=== PATIENT | male | born 1980 ===

== ENCOUNTER 2020-09-05 12:02 | Emergency (ER) | payer SELFPAY ==
[2020-09-05 12:32] VITALS: BP 124/87
[2020-09-05] MEDS ORDERED: TETANUS,DIPH,PERTUSS(ACELL) VACCINE 0.5 ML SYRINGE IM ONE (12:33)
[2020-09-05] MEDS ORDERED: NEOMY 3.5 MG/BACIT 400 UNITS/POLY B 5000 UNITS/GM OINT PACKET TP ONE (12:33)
[2020-09-05] MEDS ORDERED: LIDOCAINE (1%) 10 MG/1 ML VIAL 20 ML MDV INFILTRATI ONE (12:33)
[2020-09-05] MEDS ORDERED: ACETAMINOPHEN 325 MG TAB PO ONE (12:33)
[2020-09-05] MEDS ORDERED: SODIUM CHLORIDE 0.9% IRR 500 ML BOTTLE IR ONE (12:33)
--- NOTE | 2020-09-05 12:35 | Event Note ---
ED Screening Note ED Screening Note: lac to left 5th digit needs tdap wound wrapped in triage bleeding controlled This initial assessment/diagnostic orders/clinical plan/treatment(s) is/are subject to change based on patients health status, clinical progression and re- assessment by fellow clinical providers in the ED. Further treatment and workup at subsequent clinical providers discretion. Patient/guardian urged not to elope from the ED as their condition may be serious if not clinically assessed and managed. Initial orders include: xr ro fx lac repair
--- NOTE | 2020-09-05 14:09 | XRay Report ---
LEFT LITTLE FINGER 3 VIEWS INDICATION / CLINICAL INFORMATION: Laceration of left little finger. COMPARISON: None available. FINDINGS: BONES and JOINT(S): There is an acute comminuted fracture of the tip of the distal phalanx of the lit tle finger. No dislocation. 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 SOFT TISSUES: Moderate edema is seen throughout the little finger with soft tissue gas and a large so ft tissue defect along the tip of the little finger. No radiopaque foreign bodies are seen. ADDITIONAL FINDINGS: None. IMPRESSION: 1. Acute open fracture of the left little finger as above. 2. Additional findings as above. Signer Name: Andrae Pollard MD Signed: 09/05/2020 2:04 PM Workstation Name: [id number]
--- NOTE | 2020-09-05 14:41 | Emergency Department Report ---
Upper Extremity - HPI Chief Complaint: Extremity Injury, Upper Stated Complaint: LAC FINGER SMALL LT Time Seen by Provider: 09/05/20 12:33 Upper Extremity: Left Little Finger (Laceration ) Occurred When: Today Mechanism: Other (Pt states he was helping pull a "band" off a machine and in process his left fifth finger got caught in band and cut his finger) Severity: moderate Symptoms: Yes Pain with Movement, Yes Deformity, Yes Limited Range of Movement, Yes Bruising/Ecchymosis, Yes Laceration or Abrasion Other History: Patient states he is up-to-date on his tetanus. he is right-hand dominant. ED Review of Systems ROS: Stated complaint: LAC FINGER SMALL LT Other details as noted in HPI Comment: All other systems reviewed and negative Constitutional: denies: chills, fever, weakness Eyes: denies: eye pain, eye discharge, vision change ENT: denies: ear pain, throat pain, dental pain, hearing loss, epistaxis, congestion Respiratory: denies: cough, shortness of breath, SOB with exertion, SOB at rest, wheezing Cardiovascular: denies: chest pain, palpitations, dyspnea on exertion, edema, syncope, paroxysmal nocturnal dyspnea Genitourinary: denies: urgency, dysuria Musculoskeletal: joint swelling, arthralgia Skin: other (laceration to finger left ) Neurological: denies: weakness, numbness, paresthesias, abnormal gait, vertigo ED Past Medical Hx - Past Medical History Previous Medical History?: No - Surgical History Additional Surgical History: hernia repair - Social History Smoking Status: Current Every Day Smoker Substance Use Type: Alcohol - Medications Home Medications: Home Medications Medication Instructions Recorded Confirmed Last Taken Type HYDROcodone/APAP 5-325 [[place] 1 each PO Q4HR PRN #12 tablet 09/05/20 Unknown Rx 5/325] Ibuprofen [Motrin] 600 mg PO Q8H PRN #30 tablet 09/05/20 Unknown Rx cephALEXin [Keflex] 500 mg PO Q8HR #21 cap 09/05/20 Unknown Rx Upper Extremity Exam - Exam General: Vital signs noted. No distress. Alert and acting appropriately. Head and Torso: No Chest/Lungs Abnormality Shoulder Exam: Yes Normal Range of Motion in Shoulder Elbow: Yes Normal Range of Motion in Elbow Forearm: No Forearm Tenderness, No Forearm Deformity, No Pain with Pronation, No Pain with Supination Wrist: Yes Normal ROM in Wrist, No Wrist Tenderness, No Wrist Deformity, No Snuffbox Tenderness, No Pain with Axial Thumb Compression Hand: Yes Digit Tenderness (partial amputation distal aspect of left 5th finger with associated partial nail avulsion with mod ttp), Yes Normal ROM in Digit(s) (flex and ext at level of DIP joint reduced and Pt has chronic deformity at level of PIP joint of left 5th finger therfore already reducing ROM finger), Yes Digit(s) Deformity (Partial amputation of the distal aspect of the left fifth finger he also has a chronic deformity at the level of the PIP joint of the left fifth finger), Yes Tendon Dysfunction (Distal aspect of the left fifth finger), No Hand Tenderness, No Hand Deformity CMS Exam: Yes Broken Skin (Partial amputation at the distal aspect of the left fifth finger with associated partial nail avulsion ), Yes Normal Capillary Refill, Yes Normal Distal Sensation ED Course Vital Signs 09/05/20 09/05/20 12:31 13:07 Temperature 98.1 F Pulse Rate 65 Respiratory 18 16 Rate Blood Pressure 124/87 O2 Sat by Pulse 98 Oximetry - Laceration /Wound Repair Left Distal Finger Wound Location: upper extremity (distal left 5th finger ) Wound Explored: clean Irrigated w/ Saline (ccs): 750 Betadine Prep?: No (Use surgical scrub) Anesthesia: 1% Lidocaine Volume Anesthetic (ccs): 7 (Did digital block ) Wound Debrided: None Wound Repaired With: sutures Suture Size/Type: 4:0, nylon Number of Sutures: 8 Sterile Dressing Applied?: Yes (also finger splint ) Progress: Patient was tolerated procedure well. No complications. - Nerve Block Consent Obtained: verbal consent Time Out Performed: No Local Anesthetic Used: Lidocaine 1% Amount of anesthesia used: 7 Side: left Nerve Blocks: digital Procedure Successful: Yes Complications: none Patient Tolerated Procedure: well, no complications ED Medical Decision Making - Radiology Data Radiology results: report reviewed Ordering Physician: ALLIE LYNCH Date of Service: 09/05/20 Procedure(s): XR finger(s) 2+V LT Accession Number(s): [id number] cc: ALLIE LYNCH Fluoro Time In Minutes: LEFT LITTLE FINGER 3 VIEWS INDICATION / CLINICAL INFORMATION: Laceration of left little finger. COMPARISON: None available. FINDINGS: BONES and JOINT(S): There is an acute comminuted fracture of the tip of the distal phalanx of the little finger. No dislocation. 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 SOFT TISSUES: Moderate edema is seen throughout the little finger with soft tissue gas and a large soft tissue defect along the tip of the little finger. No radiopaque foreign bodies are seen. ADDITIONAL FINDINGS: None. IMPRESSION: 1. Acute open fracture of the left little finger as above. 2. Additional findings as above. Signer Name: Andrae Pollard MD Signed: 09/05/2020 2:04 PM Workstation Name: [id number] Transcribed By: RHONDA Dictated By: Andrae Pollard MD Electronically Authenticated By: Andrae Pollard MD Signed Date/Time: 09/05/201403 DD/ 01 TD/TT: - Medical Decision Making Patient with a partial amputation of the distal aspect of his left fifth finger with associated distal phalanx fracture. Wound edges well approximated as much as possible with sutures. See procedure note for detail. Nonstick dressing applied and finger aluminum splint applied. Discussed x-ray results with patient and informed him that it is very important that he follows up with the hand surgeon by next week. He will be started on antibiotics and given medication for pain. Patient expressed understanding of instructions and agree with plan. Patient was stable at time of discharge. Critical care attestation.: If time is entered above; I have spent that time in minutes in the direct care of this critically ill patient, excluding procedure time. ED Disposition Clinical Impression: Amputation of finger tip, Nail avulsion, finger, Open fracture of distal phalanx Disposition: DC-01 TO HOME OR SELFCARE Is pt being admited?: No Does the pt Need Aspirin: No Condition: Stable Instructions: Traumatic Finger Amputation, Nail Avulsion, Finger Fracture, Adult, [id number] Additional Instructions: I recommend I do not remove the dressing not a splint until follow-up with a hand specialist. Recommend that you take the antibiotics as prescribed to com pletion. Take the ibuprofen and the hydrocodone as prescribed to help with pain. Try to follow-up with the hand specialist next week. Return to the ER if your symptoms changes or worsens in any way. Prescriptions: cephALEXin [Keflex] 500 mg PO Q8HR #21 cap Ibuprofen [Motrin] 600 mg PO Q8H PRN #30 tablet PRN Reason: Pain HYDROcodone/APAP 5-325 [[place] 5/325] 1 each PO Q4HR PRN #12 tablet PRN Reason: Pain Referrals: REJI VELIZ MD [Referring] - 3-5 Days (Hand surgeon) NIMO CUELLAR MD [Referring] - 3-5 Days (Hand surgeon ) FAITH HE MD [Staff Physician] - 3-5 Days (General Orthopedic Surgeon ) Forms: Work/School Release Form(ED) Time of Disposition: 14:50
== END 2020-09-05 15:05 | disposition home or self-care (01) ==
LOC: ED 12:02
DX: S68.117A Complete traumatic metacarpophalangeal amputation of left little finger, initial encounter (principal); F17.200 Nicotine dependence, unspecified, uncomplicated; Z98.890 Other specified postprocedural states; Z79.899 Other long term (current) drug therapy; Z91.041 Radiographic dye allergy status; X58.XXXA Exposure to other specified factors, initial encounter; Y93.89 Activity, other specified; Y92.89 Other specified places as the place of occurrence of the external cause; Y99.8 Other external cause status
CPT/HCPCS: 29130; 73140; 99283; A6250

== ENCOUNTER 2020-09-26 07:16 | Emergency (ER) | payer SELFPAY ==
--- NOTE | 2020-09-26 08:25 | Emergency Department Report ---
ED General Adult HPI - General Chief complaint: Extremity Problem,Nontraumatic Stated complaint: REMOVAL OF STITCHES Time Seen by Provider: 09/26/20 07:55 Source: patient Mode of arrival: Ambulatory Limitations: No Limitations - History of Present Illness Initial comments: 40-year-old male patient presents for suture removal today. Sutures were placed in his right thumb here in the ED on 09/05/2020. Patient was diagnosed with an open fracture at that time and states he has been following with a doctor in [place]. He states compliance with his splint that was applied And denies having surgical repair. Patient states compliance with antibiotics prescribed and denies any swelling, drainage, difficulty moving his extremity, or fever/chills/sweats. He states he is feeling well denies any complaints - Related Data Previous Rx's Medication Instructions Recorded Last Taken Type HYDROcodone/APAP 5-325 [[place] 1 each PO Q4HR PRN #12 tablet 09/05/20 Unknown Rx 5/325] Ibuprofen [Motrin] 600 mg PO Q8H PRN #30 tablet 09/05/20 Unknown Rx cephALEXin [Keflex] 500 mg PO Q8HR #21 cap 09/05/20 Unknown Rx Allergies Allergy/AdvReac Type Severity Reaction Status Date / Time iodine Allergy Unknown Verified 09/05/20 12:27 ED Review of Systems ROS: Stated complaint: REMOVAL OF STITCHES Other details as noted in HPI Constitutional: denies: diaphoresis, fever, malaise, weakness Skin: denies: change in color Neurological: denies: numbness, paresthesias ED Past Medical Hx - Past Medical History Previous Medical History?: No - Surgical History Past Surgical History?: Yes Additional Surgical History: hernia repair - Social History Smoking Status: Current Every Day Smoker Substance Use Type: Alcohol - Medications Home Medications: Home Medications Medication Instructions Recorded Confirmed Last Taken Type HYDROcodone/APAP 5-325 [[place] 1 each PO Q4HR PRN #12 tablet 09/05/20 Unknown Rx 5/325] Ibuprofen [Motrin] 600 mg PO Q8H PRN #30 tablet 09/05/20 Unknown Rx cephALEXin [Keflex] 500 mg PO Q8HR #21 cap 09/05/20 Unknown Rx ED Physical Exam - General Limitations: No Limitations General appearance: alert, in no apparent distress - Head Head exam: Present: atraumatic - Eye Eye exam: Present: normal appearance - Respiratory Respiratory exam: Absent: respiratory distress - Cardiovascular Cardiovascular Exam: Present: regular rate - Neurological Exam Neurological exam: Present: alert, oriented X3 - Psychiatric Psychiatric exam: Present: normal affect, normal mood - Skin Skin exam: Present: warm, dry, intact, normal color, other (A simple sutures noted to left fifth digit; no surrounding erythema, wound dehiscence, or drainage noted; there is some decreased flexion at the PIP joint noted). Absent: rash ED Course Vital Signs 09/26/20 07:27 Temperature 98.3 F Pulse Rate 57 L Respiratory 18 Rate Blood Pressure 120/63 O2 Sat by Pulse 98 Oximetry - Procedure Description Procedures done: A simple sutures removed from distal left fifth digit. Patient tolerated procedure well without any immediate complications. No wound dehiscence or bleeding noted. Patient has normal perfusion of the finger and sensation ED Medical Decision Making - Medical Decision Making 40-year-old male patient presents for suture removal today. Sutures were placed in his right thumb here in the ED on 09/05/2020. Patient was diagnosed with an open fracture at that time and states he has been following with a doctor in [place]. He states compliance with his splint that was applied And denies having surgical repair. Patient states compliance with antibiotics prescribed and denies any swelling, drainage, difficulty moving his extremity, or fever/chills/sweats. He states he is feeling well denies any complaints. Sutures removed, patient tolerated procedure well. No signs of wound infection noted. Recommend topical Neosporin 2-3 times daily and continue follow-up with orthopedic surgeon. Patient is well-appearing and stable for discharge home. Strict return precautions were discussed in detail patient verbalizes understanding. Critical care attestation.: If time is entered above; I have spent that time in minutes in the direct care of this critically ill patient, excluding procedure time. ED Disposition Clinical Impression: Encounter for removal of sutures Disposition: DC-01 TO HOME OR SELFCARE Is pt being admited?: No Condition: Stable Instructions: Wound Closure Removal, Care After Referrals: PRIMARY CARE, [Primary Care Provider] - 3-5 Days Time of Disposition: 08:25
[2020-09-26 09:09] VITALS: BP 132/86
== END 2020-09-26 09:08 | disposition home or self-care (01) ==
LOC: ED 07:16
DX: S68.117D Complete traumatic metacarpophalangeal amputation of left little finger, subsequent encounter (principal); F17.200 Nicotine dependence, unspecified, uncomplicated; Z98.890 Other specified postprocedural states; Z79.899 Other long term (current) drug therapy; X58.XXXD Exposure to other specified factors, subsequent encounter